=== PATIENT | male | born 2000 | race Caucasian/White ===

== ENCOUNTER 2023-06-10 09:37 | Inpatient (IN) | payer OTHER, SELFPAY ==
[2023-06-10 09:38] VITALS: BP 126/91; PULSE 120; RESP 18; TEMP 36.6; O2SAT 98
--- NOTE | 2023-06-10 10:10 | EX.ED.SAOD ---
HPI History of Present Illness Chief Complaint: Substance Abuse Informant: patient Onset/Context/Timing Onset: Yesterday Context: Gradual Onset Timing: Continuous Quality: Aching Location: Generalized Worsened by: Nothing Relieved by: Nothing Associated Symptoms Associated Symptoms: Positive for vomiting*, diarrhea* and tremor; Negative for fever*, rash*, seizure, palpatations, change in mental status, suicidal ideation or homicidal ideation Narrative Narrative: Patient presents requesting detox from fentanyl, benzodiazepines, and amphetamines. Patient states his last use was yesterday. Patient states he uses approximately half a gram fentanyl per day. Patient admits to some nausea, vomiting, and diarrhea. Patient admits to some mild tremors but denies any seizures. Patient denies any suicidal or homicidal ideations. Patient denies any fevers but admits to some subjective chills. Patient states he has never been through detox before. PFSH PFS Medical History no medical history no medical history Home Medications NK 06/10/23 [History Last Taken Unknown] Allergy/AdvReac Type Severity Reaction Status Date / Time No Known Allergies Allergy Verified 06/10/23 09:41 Surgical History (Updated 06/10/23 @ 10:[address] Ozzy Barrios DO) S/P ORIF (open reduction internal fixation) fracture Social History (Updated 06/10/23 @ 10:[address] Ozzy Barrios DO) Electronic Cigarette Use: with nicotine substance use type: amphetamines and opiates ROS ROS ED Constitutional Constitutional ED: Reports chills and subjective; Denies fever(s) Eyes Eyes: Denies blurry vision or change in vision ENT ENT ED: Denies rhinorrhea or sore throat Cardiovascular Cardiovascular: Denies chest pain or palpitations Respiratory/Chest Respiratory/Chest: Denies cough or dyspnea Gastrointestinal Gastrointestinal: Reports diarrhea, nausea and vomiting Genitourinary Genitourinary ED: Denies dysuria or hematuria Musculoskeletal Musculoskeletal: Reports myalgias Integumentary Denies abscess or rash Neurologic Neurologic: Denies headache(s) or weakness Allergic/Immunologic Allergic/Immunologic ED: Denies mouth swelling or urticaria EXAM Physical Exam Const Vital Signs: 06/10/23 09:38 Temperature 97.8 F Temperature Source Temporal Pulse Rate 120 H Respiratory Rate 18 Blood Pressure 126/91 H Blood Pressure Mean 102 Pulse Ox 98 Oxygen Delivery Method Room Air Positive well nourished and well developed General Appearance ED: well developed and NAD HEENT Reports moist mucous membranes Resp normal respiratory effort and clear to auscultation bilaterally Cardio regular rhythm Rate: tachycardic GI soft to palpation, non-tender and non-distended Neuro oriented x3, CN's II-XII intact bilaterally and no sensory deficits noted Cassandra Coma Scale: document GCS findings Spontaneous Obeys Commands Oriented 15 Sensorium / Orientation: alert Motor Exam: strength 5/5 throughout Psych mental status grossly normal MDM MDM MDM Narrative Medical decision making narrative: Medical screening labs will be obtained. CBC will be obtained to assess for leukocytosis and anemia. Comprehensive metabolic profile will be obtained to assess for hepatic function, renal function, and electrolyte abnormality. Urinalysis will be obtained to assess for urinary tract infection or hematuria. Serum alcohol level will be obtained to assess for alcohol intoxication. Urine tox screen will be obtained to assess for substance abuse. Lab Data Attestation: I reviewed the patient's lab results. Lab results narrative: CBC was reviewed and was within normal limits. Comprehensive metabolic profile was reviewed and was within normal limits. Urinalysis was reviewed. There is no evidence of urinary tract infection or hematuria. Urine tox screen was reviewed and was positive for benzodiazepines and cannabinoids. Serum alcohol level was reviewed and was less than 3.0. Labs: Laboratory Results - last 24 hr 06/10/23 06/10/23 10:11 11:00 WBC 10.4 RBC 5.32 Hgb 15.1 Hct 46.3 MCV 87.0 MCH 28.4 MCHC 32.6 RDW Std Deviation 42.8 RDW Coeff of Lisa 13.6 Plt Count 272 MPV 10.9 Immature Gran % (Auto) 0.300 Neut % (Auto) 76.5 H Lymph % (Auto) 16.9 L [place] % (Auto) 6.1 Eos % (Auto) 0.0 Baso % (Auto) 0.2 Absolute Neuts (auto) 7.9 H Absolute Lymphs (auto) 1.75 Nucleated RBC % 0 Sodium 146 H Potassium 4.0 Chloride 114 H Carbon Dioxide 25.0 Anion Gap 7 BUN 11 Creatinine 0.96 Est GFR (MDRD) Af Amer 127 Est GFR (MDRD) Non-Af 105 BUN/Creatinine Ratio 11.4 Glucose 114 H Calcium 9.3 Total Bilirubin 0.50 AST 19 ALT 22 Alkaline Phosphatase 81 Total Protein 7.6 Albumin 4.1 Globulin 3.5 Albumin/Globulin Ratio 1.2 Urine Color Yellow Urine Clarity Clear Urine pH 8.0 Ur Specific [place] 1.015 Urine Protein 15 H Urine Glucose (UA) Normal Urine Ketones Negative Urine Occult Blood Negative Urine Nitrite Negative Urine Bilirubin Negative Urine Urobilinogen Normal Ur Leukocyte Esterase Negative Urine RBC 0 SEEN Urine WBC 0-5 SEEN Ur Squamous Epith Cells 0 SEEN Urine Bacteria RARE Urine Mucus RARE Urine Opiates Screen NEGATIVE Urine Methadone Screen NEGATIVE Ur Barbiturates Screen NEGATIVE Ur Phencyclidine Scrn NEGATIVE Ur Amphetamines Screen NEGATIVE MDMA (Ecstasy) Screen NEGATIVE U Benzodiazepines Scrn POSITIVE H Urine Cocaine Screen NEGATIVE U Cannabinoids Screen POSITIVE H Ur Drug Screen Comment Ethyl Alcohol < 3.0 Treatment and Re-Evaluation Narrative: Patient was advised of his findings. Case was discussed with the hospitalist. He will admit the patient to his service. Patient understood and was agreeable with the plan. All questions were answered. Discharge Plan Triage Chief Complaint: Substance Abuse ED Provider: Ozzy Barrios Dx/Rx/DC Orders Clinical Impression: Opiate withdrawal, Desire for detoxification, Benzodiazepine withdrawal Prescriptions: No Action NK Primary Care Provider: Care Physician,No Primary Referrals: Care Physician,No Primary [Primary Care Provider] - Disposition Disposition: Acute Care Hospital [facility]
[2023-06-10 10:45] LABS: Absolute Lymphocyte Count 1.75 X10^3/uL (0.83-4.51); Absolute Neutrophil Count 7.9 X10^3/uL (2.0-7.7); Basophil# 0.02 X10^3/uL; Basophil% 0.2 % (0-1); Hematocrit 46.3 % (40-54); Hemoglobin 15.1 g/dL (13.0-16.5); Lymphocyte # 1.75 X10^3/ul (0.83-4.51); Lymphocyte % 16.9 % (19-41); Mean Corp Hgb Conc 32.6 g/dL (32-36); Mean Corpuscular Hgb 28.4 pg (27.0-32.0); Mean Platelet Vol. 10.9 fl (6.2-12.0); Monocyte# 0.63 X10^3/uL; Monocyte% 6.1 % (0-10); NRBC Flagged by Analyzer 0 % (0-5); Neutrophil # 7.93 X10^3/uL (2.7-7.7); Neutrophil % 76.5 % (47-70); Platelet Count 272 K/mm3 (150-450); RBC Distribution Width CV 13.6 % (11.6-14.6); RBC Distribution Width SD 42.8 fl (35.1-43.9); Red Blood Count 5.32 M/mm3 (4.6-6.2); White Blood Count 10.4 K/mm3 (4.4-11.0)
[2023-06-10 10:56] LABS: Alcohol, Blood (Medical)-Serum < 3.0 mg/dL
[2023-06-10 10:58] LABS: ALB/GLOB Ratio 1.2 RATIO (0.9-2.4); AST(SGOT) 19 U/L (15-37); Alanine Aminotransfer ALT/SGPT 22 U/L (16-61); Albumin, Serum 4.1 g/dL (3.2-5.0); Alkaline Phosphatase 81 U/L (45-117); Anion Gap 7 (5-15); BUN 11 mg/dL (7-18); BUN/Creat Ratio 11.4 RATIO (10-20); Calcium,Total 9.3 mg/dL (8.5-10.1); Chloride 114 mmol/L (98-107); Creatinine, Serum 0.96 mg/dL (0.70-1.30); EST Glomerular Filtration Rate 105 mL/min (>60); Est Glom Filt Rate - Afr Amer 127 mL/min (>60); Globulin 3.5 g/dL (2.2-4.2); Glucose 114 mg/dL (74-106); Protein, Total 7.6 g/dL (6.4-8.2); Sodium Level 146 mmol/L (136-145)
[2023-06-10 11:20] LABS: Red Blood Cells-Urine 0 SEEN /hpf (0-5); Squamous Epithelial Cells - UA 0 SEEN /hpf (0-5)
[2023-06-10 11:27] LABS: Color, Urine Yellow (Yellow); Glucose, Dipstick Normal (Normal); Ketone-Dipstick Negative (Negative); Leukocyte Esterase-Dipstick Negative /ul (Negative); Nitrite-Dipstick Negative (Negative); Occult Blood-Urine Negative /ul (Negative); Protein-Dipstick 15 mg/dl (Negative); Specific Gravity, Urine 1.015 (1.002-1.030); Urine Bilirubin Dipstick Negative (Negative); Urine Clarity Clear (Clear); Urine Urobilinogen Normal (Normal)
[2023-06-10 11:42] LABS: Bacteria RARE /hpf (None Seen); Mucous, Urine RARE /hpf (<or=2+); White Blood Cells 0-5 SEEN /hpf (0-5)
--- NOTE | 2023-06-10 11:47 | HP.PCM.HOS_ITS ---
HPI - General General Date of Admission: 06/10/23 Date of Service: 06/10/23 Chief Complaint: Substance abuse HPI Narrative PRINCESS BOWER, is a 23 M who presented to [facility] ED on 06/10/2023 for opiate and benzodiazepine detoxification. Patient seen at bedside in the ED. Patient was in a dark room, lying fairly comfortably in bed, in no acute distress. Patient states that he has been using dope about every day. On further clarification, states he injects IV fentanyl that he thinks is cut with benzodiazepines and amphetamine. He does not use any benzos or amphetamines on their own. Last use was yesterday. He denies any history of significant withdrawal symptoms. Has never come to the hospital for detoxific ation. States his current symptoms are nausea with vomiting prior to admission, diarrhea, tremor. Denies any fevers, rash, palpitations or mood changes. Denies any other pain or discomfort. No other acute concerns at this time. [facility] Medical History no medical history Home Medications NK 06/10/23 [History Last Taken Unknown] Allergy/AdvReac Type Severity Reaction Status Date / Time No Known Allergies Allergy Verified 06/10/23 09:41 Surgical History (Updated 06/10/23 @ 10:[address] Ozzy Barrios, ) S/P ORIF (open reduction internal fixation) fracture Social History (Updated 06/10/23 @ 10:[address] Ozzy Barrios, ) Smoking Status: Current every day smoker tobacco type: e-cigarettes Electronic Cigarette Use: with nicotine substance use type: amphetamines and opiates ROS Constitutional Constitutional: Reports malaise; Denies chills, fatigue, fever(s) or weakness Eyes Eyes: Denies change in vision Cardiovascular Cardiovascular: Denies chest pain, dyspnea on exertion, edema, lightheadedness, palpitations or rapid heart rate Respiratory/Chest Respiratory/Chest: Denies cough, shortness of breath at rest or wheezing Gastrointestinal Gastrointestinal: Reports diarrhea and nausea; Denies abdominal pain, constipation or vomiting Genitourinary Genitourinary: Denies dysuria Musculoskeletal Musculoskeletal: Denies back pain Neurologic Neurologic: Denies dizziness or focal weakness Psychiatric Psychiatric: Reports anxiety Vital Signs Vital Signs Vital Signs: 06/10/23 09:38 Temperature 97.8 F Temperature Source Temporal Pulse Rate 120 H Respiratory Rate 18 Blood Pressure 126/91 H Blood Pressure Mean 102 Pulse Ox 98 Oxygen Delivery Method Room Air Physical Exam Const alert, oriented x3, no apparent distress and average body habitus Constitutional Narrative: Pleasant young male, laying fairly comfortably in bed, conversing normally, no acute distress. General Appearance: cooperative and comfortable HEENT normocephalic, head/scalp atraumatic, hearing grossly normal bilaterally, nasal mucous membranes and turbinates normal and moist oral mucous membranes Eyes PERRL, EOMs intact bilaterally and conjunctivae normal Neck full ROM, no lymphadenopathy and supple Lymph Lymphatic: no lymphadenopathy noted Chest inspection of chest normal Resp normal respiratory effort, normal air movement, no use of accessory muscles and clear to auscultation bilaterally Cardio regular rate, regular rhythm, no murmurs and peripheral pulses 2+ throughout GI normal to inspection, nondistended, normoactive bowel sounds, soft to palpation, non-tender and non-distended Back/Spine normal ROM Extremity normal to inspection, full ROM and no pedal edema Skin no rashes or lesions noted Psych mental status grossly normal Results Lab / Micro Data 06/10/23 10:11 06/10/23 10:11 Labs: Laboratory Results - last 24 hr 06/10/23 10:11: WBC 10.4, RBC 5.32, Hgb 15.1, Hct 46.3, MCV 87.0, MCH 28.4, MCHC 32.6, RDW Std Deviation 42.8, RDW Coeff of Lisa 13.6, Plt Count 272, MPV 10.9, Immature Gran % (Auto) 0.300, Neut % (Auto) 76.5 H, Lymph % (Auto) 16.9 L, [place] % (Auto) 6.1, Eos % (Auto) 0.0, Baso % (Auto) 0.2, Absolute Neuts (auto) 7.9 H, Absolute Lymphs (auto) 1.75, Nucleated RBC % 0, Sodium 146 H, Potassium 4.0, Chloride 114 H, Carbon Dioxide 25.0, Anion Gap 7, BUN 11, Creatinine 0.96, Est GFR (MDRD) Af Amer 127, Est GFR (MDRD) Non-Af 105, BUN/Creatinine Ratio 11.4, Glucose 114 H, Calcium 9.3, Total Bilirubin 0.50, AST 19, ALT 22, Alkaline Phosphatase 81, Total Protein 7.6, Albumin 4.1, Globulin 3.5, Albumin/Globulin Ratio 1.2, Ethyl Alcohol < 3.0 06/10/23 11:00: Urine Color Yellow, Urine Clarity Clear, Urine pH 8.0, Ur Specific [place] 1.015, Urine Protein 15 H, Urine Glucose (UA) Normal, Urine Ketones Negative, Urine Occult Blood Negative, Urine Nitrite Negative, Urine Bilirubin Negative, Urine Urobilinogen Normal, Ur Leukocyte Esterase Negative, Urine RBC 0 SEEN, Urine WBC 0-5 SEEN, Ur Squamous Epith Cells 0 SEEN, Urine Bacteria RARE, Urine Mucus RARE, Ur Drug Screen Comment Assessment & Plan Assessment/Plan (1) Benzodiazepine withdrawal: (2) Opiate withdrawal: (3) Desire for detoxification: PLAN: Plan Patient is a 23-year-old male who presented to [facility] ED on 06/10/2023 for opiate and benzodiazepine detoxification. 1. Polysubstance abuse Patient reports fentanyl, benzodiazepine and amphetamine abuse. On further questioning, states his dope was cut with benzos and amphetamines, was not taking Xanax or other benzos on their own. Injects about half a gram of fentanyl per day. Last use was day prior to admission. Urine drug screen was positive only for benzodiazepines and cannabinoids, but notably fentanyl is not detected with this screen. ? Admit under inpatient status to [facility]. Opiate withdrawal protocol ordered including Subutex taper. Benzodiazepine withdrawal order set also ordered, but only with [place] protocol, no benzo or phenobarbital taper for now. Case management, addiction medicine consulted. DVT prophylaxis: Low risk, ambulate CODE STATUS: Full code, verified Expected disposition: Home, 2 to 3 days Total clinical time spent by myself addressing the patient's medical issues, rev iewing all the data, and collaborating with patient's care team: 40 minutes. Charges/Coding Visit Charges Inpatient E&M: 99493 Init Hosp L1
[2023-06-10 11:55] LABS: Amphetamine Urine VISTA NEGATIVE (<1000 ng/mL); Barbiturate Urine VISTA NEGATIVE (< 200 ng/mL); Benzodiazepine Urine VISTA POSITIVE (< 200 ng/mL); Cocaine Urine VISTA NEGATIVE (< 300 ng/mL); Ecstacy Urine VISTA NEGATIVE (< 500 ng/mL); Methadone Urine VISTA NEGATIVE (< 300 ng/mL); PCP Urine VISTA NEGATIVE (< 25 ng/mL); THC Urine VISTA POSITIVE (< 50 ng/mL); Vista UDS pH Range 8
[2023-06-10 12:05] VITALS: BMI 21.7; BMI 21.8
[2023-06-10 12:11] VITALS: BP 162/90; PULSE 109; RESP 16; TEMP 37.3; O2SAT 97
[2023-06-10 12:14] VITALS: BP 162/90; PULSE 111; RESP 16; TEMP 37.3; O2SAT 97
[2023-06-10 16:46] VITALS: BMI 21.5
[2023-06-10] MEDS: Acetaminophen 325 MG Tablet 650 MG PO (16:56)
[2023-06-10] MEDS: cloNIDine HCl 0.1 MG Tablet PO (16:57)
[2023-06-10] MEDS: Dicyclomine 10 MG Capsule 20 MG PO (16:57)
[2023-06-10] MEDS: hydrOXYzine PAM 25 MG Capsule 50 MG PO (16:57)
[2023-06-10 17:00] VITALS: BP 139/90; PULSE 110; RESP 14; TEMP 36.8; O2SAT 99
[2023-06-10] MEDS: Buprenorphine HCl 2 MG TAB.SUBL SL (17:07)
[2023-06-10 20:49] VITALS: BP 126/71; PULSE 76; RESP 16; TEMP 37.1; O2SAT 96
[2023-06-10] MEDS: traZODone 100 MG Tablet PO (20:55)
[2023-06-11] VITALS (8 sets, daily range): BP systolic 100–119; BP diastolic 50–67; PULSE 65–81; RESP 14–18; TEMP 36.6–37.1; O2SAT 93–100
[2023-06-11] MEDS: Methocarbamol 750 MG Tablet PO ×2 (00:48→22:17)
[2023-06-11] MEDS: Buprenorphine HCl 2 MG TAB.SUBL SL ×3 (00:48→17:21)
[2023-06-11 05:49] LABS: Hematocrit 44.4 % (40-54); Hemoglobin 14.3 g/dL (13.0-16.5); Mean Corp Hgb Conc 32.2 g/dL (32-36); Mean Corpuscular Hgb 28.1 pg (27.0-32.0); Mean Corpuscular Volume 87.2 fL (80-94); Mean Platelet Vol. 10.5 fl (6.2-12.0); Platelet Count 270 K/mm3 (150-450); RBC Distribution Width CV 13.7 % (11.6-14.6); RBC Distribution Width SD 43.6 fl (35.1-43.9); Red Blood Count 5.09 M/mm3 (4.6-6.2); White Blood Count 11.1 K/mm3 (4.4-11.0)
[2023-06-11 06:17] LABS: Anion Gap 6 (5-15); BUN 14 mg/dL (7-18); BUN/Creat Ratio 17.6 RATIO (10-20); Calcium,Total 8.8 mg/dL (8.5-10.1); Chloride 113 mmol/L (98-107); EST Glomerular Filtration Rate 130 mL/min (>60); Est Glom Filt Rate - Afr Amer 158 mL/min (>60); Estimated Creatinine Clearance 140.57 ml/min; Glucose 101 mg/dL (74-106); Potassium 4.1 mmol/L (3.5-5.1); Sodium Level 143 mmol/L (136-145)
[2023-06-11] MEDS: Thiamine Hydrochloride 100 MG Tablet PO (08:35)
[2023-06-11] MEDS: Folic Acid 1 MG Tablet PO (08:36)
[2023-06-11] MEDS: Acetaminophen 325 MG Tablet 650 MG PO ×2 (09:00→18:21)
[2023-06-11] MEDS: cloNIDine HCl 0.1 MG Tablet PO ×2 (09:01→22:17)
[2023-06-11] MEDS: hydrOXYzine PAM 25 MG Capsule 50 MG PO ×2 (09:01→18:22)
--- NOTE | 2023-06-11 12:04 | PCM.PN.HOSP ---
Reason for Visit Reason for Visit: Diagnoses Opioid use, unspecified with withdrawal (06/10/23) Sedative, hypnotic or anxiolytic use, unspecified with withdrawal, unspecified (06/10/23) Subjective Subjective Patient seen at bedside this morning. Sitting comfortably in bed, eating breakfast when I arrived to the room. Patient states that the medications have controlled his withdrawal symptoms well. Denies any acute pain or discomfort. No other acute concerns this morning. Objective Data Objective Data Vital Signs: Vital Signs Temp Pulse Resp BP Pulse Ox O2 Del Method 98 F 68 18 119/67 98 Room Air 06/11/23 09:03 06/11/23 09:05 06/11/23 09:05 06/11/23 09:03 06/11/23 09:05 06/11/23 09:05 Oxygen Delivery Method Room Air Weight: 68.039 kg Body Mass Index (BMI) 21.5 Intake & Output: Intake and Output for Last 24 Hours 06/09/23 06/10/23 06/11/23 23:59 23:59 23:59 Intake Total 740 / 740 Balance 740 / 740 Lab / Micro Data 06/11/23 05:38 06/11/23 05:38 Labs: Laboratory Results - last 24 hr 06/11/23 05:38: WBC 11.1 H, RBC 5.09, Hgb 14.3, Hct 44.4, MCV 87.2, MCH 28.1, MCHC 32.2, RDW Std Deviation 43.6, RDW Coeff of Lisa 13.7, Plt Count 270, MPV 10.5, Sodium 143, Potassium 4.1, Chloride 113 H, Carbon Dioxide 24.0, Anion Gap 6, BUN 14, Creatinine 0.80, Estim Creat Clear Calc 140.57, Est GFR (MDRD) Af Amer 158, Est GFR (MDRD) Non-Af 130, BUN/Creatinine Ratio 17.6, Glucose 101, Calcium 8.8 Physical Exam Const alert, oriented x3, no apparent distress and average body habitus Constitutional Narrative: Pleasant young male, sitting comfortably in bed, conversing normally, no acute distress. General Appearance: cooperative and comfortable HEENT normocephalic, head/scalp atraumatic, hearing grossly normal bilaterally, nasal mucous membranes and turbinates normal and moist oral mucous membranes Eyes PERRL, EOMs intact bilaterally and conjunctivae normal Neck full ROM, no lymphadenopathy and supple Lymph Lymphatic: no lymphadenopathy noted Chest inspection of chest normal Resp normal respiratory effort, normal air movement, no use of accessory muscles and clear to auscultation bilaterally Cardio regular rate, regular rhythm, no murmurs and peripheral pulses 2+ throughout GI normal to inspection, nondistended, normoactive bowel sounds, soft to palpation, non-tender and non-distended Back/Spine normal ROM Extremity normal to inspection, full ROM and no pedal edema Skin no rashes or lesions noted Neuro moves all extremities and no focal motor deficits Speech: speech normal Psych mental status grossly normal Assessment & Plan Assessment/Plan (1) Benzodiazepine withdrawal: (2) Opiate withdrawal: (3) Desire for detoxification: PLAN: Plan Patient is a 23-year-old male who presented to [facility] ED on 06/10/2023 for opiate and benzodiazepine detoxification. 1. Polysubstance abuse Patient reports fentanyl, benzodiazepine and amphetamine abuse. On further questioning, states his dope was cut with benzos and amphetamines, was not taking Xanax or other benzos on their own. Injects about half a gram of fentanyl per day. Last use was day prior to admission. Urine drug screen was positive only for benzodiazepines and cannabinoids, but notably fentanyl is not detected with this screen. ? Continue opiate withdrawal protocol with Subutex taper. Continue benzodiazepine withdrawal order set with only CIWA scores, no benzo or phenobarbital taper. Case management, addiction medicine consulted. DVT prophylaxis: Low risk, ambulate CODE STATUS: Full code, verified Expected disposition: Home, 1 to 2 days Total clinical time spent by myself addressing the patient's medical issues, reviewing all the data, and collaborating with patient's care team: 25 minutes. Charges/Coding Visit Charges Inpatient E&M: 49177 Subs Hosp L1
[2023-06-11] MEDS: Gabapentin 300 MG Capsule PO (22:17)
[2023-06-11] MEDS: traZODone 100 MG Tablet PO (22:17)
[2023-06-11] MEDS: Ondansetron 8 MG Tablet PO (22:17)
[2023-06-11] MEDS: MELATONIN 3 MG TABLET PO (22:18)
[2023-06-12] MEDS: Buprenorphine HCl 2 MG TAB.SUBL SL ×3 (00:52→17:39)
[2023-06-12 03:15] VITALS: BP 106/68; PULSE 72; RESP 14; TEMP 36.9; O2SAT 99
--- NOTE | 2023-06-12 08:29 | PN.HOSP_ITS ---
Reason for Visit Reason for Visit: Diagnoses Opioid use, unspecified with withdrawal (06/10/23) Sedative, hypnotic or anxiolytic use, unspecified with withdrawal, unspecified (06/10/23) Subjective Subjective Feeling well. Objective Data Objective Data Vital Signs: Vital Signs Temp Pulse Resp BP Pulse Ox O2 Del Method 36.9 C 72 14 106/68 99 Room Air 06/12/23 03:15 06/12/23 03:15 06/12/23 03:15 06/12/23 03:15 06/12/23 03:15 06/12/23 03:15 Oxygen Delivery Method Room Air Weight: 68.039 kg Body Mass Index (BMI) 21.5 Intake & Output: Intake and Output for Last 24 Hours 06/10/23 06/11/23 06/12/23 23:59 23:59 23:59 Intake Total 1380 / 1380 Balance 1380 / 1380 Lab / Micro Data 06/11/23 05:38 06/11/23 05:38 Physical Exam Const alert and no apparent distress HEENT head/scalp atraumatic Neuro Sensorium / Orientation: awake and alert Assessment & Plan Assessment/Plan (1) Benzodiazepine withdrawal: (2) Opiate withdrawal: (3) Desire for detoxification: PLAN: Plan Polysubstance abuse * Patient reports fentanyl, benzodiazepine and amphetamine abuse. On further questioning, states his dope was cut with benzos and amphetamines, was not taking Xanax or other benzos on their own. Injects about half a gram of fentanyl per day. Last use was day prior to admission. Urine drug screen was positive only for benzodiazepines and cannabinoids, but notably fentanyl is not detected with this screen. Continue opiate withdrawal protocol with buprenorphine taper. Continue benzodiazepine withdrawal order set with only CIWA scores, no benzo or phenobarbital taper. Case management, addiction medicine consulted. DVT prophylaxis: Low risk, ambulate CODE STATUS: Full code, verified Expected disposition: Home on the . Charges/Coding Visit Charges Inpatient E&M: 91115 Subs Hosp L1
[2023-06-12 08:30] VITALS: O2SAT 98
[2023-06-12 09:24] VITALS: BP 132/75; PULSE 69; RESP 12; TEMP 36.4; O2SAT 100
[2023-06-12 09:25] VITALS: RESP 14
[2023-06-12] MEDS: Folic Acid 1 MG Tablet PO (09:34)
[2023-06-12] MEDS: Thiamine Hydrochloride 100 MG Tablet PO (09:34)
--- NOTE | 2023-06-12 12:14 | ADDICTION ---
This policy writer sales met with PT to conduct ASAM, MSE, AUDIT assessments and to plan for d/c. PT A+Ox4 and participated actively. All assessments completed and placed in PT's chart. PT plans to f/u with [facility] for follow-up treatment services. PT did not indicate a need for transportation post d/c from [facility].
[2023-06-12 15:10] VITALS: BP 112/53; PULSE 73; RESP 16; TEMP 36.9; O2SAT 98
[2023-06-12 19:45] VITALS: BP 142/89; PULSE 83; RESP 16; TEMP 37.4; O2SAT 99
[2023-06-12] MEDS: cloNIDine HCl 0.1 MG Tablet PO (19:47)
[2023-06-12] MEDS: MELATONIN 3 MG TABLET PO (19:47)
[2023-06-12] MEDS: hydrOXYzine PAM 25 MG Capsule 50 MG PO (19:47)
[2023-06-12] MEDS: traZODone 100 MG Tablet PO (22:10)
[2023-06-12] MEDS: Gabapentin 300 MG Capsule PO (22:10)
[2023-06-13 05:00] VITALS: BP 127/58; PULSE 63; RESP 16; TEMP 36.6; O2SAT 99
[2023-06-13] MEDS: Buprenorphine HCl 2 MG TAB.SUBL SL (05:07)
--- NOTE | 2023-06-13 07:17 | DS.PCM_ITS ---
Providers Date of Admission: 06/10/23 Primary Care Physician: Radha Primary Care Phys Reason For Visit: SUBSTANCE ABUSE, DETOXIFICATION Diagnosis Discharge Diagnosis (1) Benzodiazepine withdrawal: Status: Acute Code(s): F13.939 - Sedative, hypnotic or anxiolytic use, unspecified with withdrawal, unspecified (2) Opiate withdrawal: Status: Acute Code(s): F11.93 - Opioid use, unspecified with withdrawal (3) Desire for detoxification: Status: Acute Plan Polysubstance abuse * Patient reports fentanyl, benzodiazepine and amphetamine abuse. On further questioning, states his dope was cut with benzos and amphetamines, was not taking Xanax or other benzos on their own. Injects about half a gram of f entanyl per day. Last use was day prior to admission. Urine drug screen was positive only for benzodiazepines and cannabinoids, but notably fentanyl is not detected with this screen. Continue opiate withdrawal protocol with buprenorphine taper. Continue benzodiazepine withdrawal order set with only CIWA scores, no benzo or phenobarbital taper. Case management, addiction medicine consulted. * Patient to follow up with [facility]. DVT prophylaxis: Low risk, ambulate CODE STATUS: Full code, verified Expected disposition: Home on the . Medications at Discharge Home Medications NK 06/10/23 Hospital Course Operations None Procedures None Physical Exam Narrative Feels well. No events overnight. Const alert, average body habitus and well nourished General Appearance: cooperative Weight / BMI Weight Weight: 68.039 kg Body Mass Index (BMI) 21.5 ABG / Lab / Microbiology Data 06/11/23 05:38 06/11/23 05:38 D/C Instructions Discharge Diet: No restrictions Meaningful Use Info Meaningful Use Diagnoses (Choose all that apply): None applicable Discharge Plan Admission Admit Date/Time: 06/10/23 11:51 Primary Reason for Your Visit: Opiate withdrawal Attending Provider: Ozzy Harris Primary Care Provider: Care Physician,No Primary Consulting Providers: Fernando Boyd Additional Instructions / Restrictions: Follow-up with [facility] for additional counseling. Discharge Orders/Prescriptions Prescriptions: No Action NK Referrals / Follow Up: Care Physician,No Primary [Primary Care Provider] - Disposition Disposition (needs filled in before D/C Order can be placed): Home, Self Care Charges/Coding Visit Charges Inpatient E&M: 90494 Disch Hosp
[2023-06-13] MEDS: Folic Acid 1 MG Tablet PO (09:26)
[2023-06-13] MEDS: Thiamine Hydrochloride 100 MG Tablet PO (09:27)
[2023-06-13 09:30] VITALS: BP 146/68; PULSE 67; RESP 16; TEMP 36.7; O2SAT 100
== END 2023-06-13 11:42 | disposition home or self-care (01) | DRG 897 ==
LOC: ED 11:57 → MS3 15:42
PROVIDERS: Admitting Provider Hospitalist; Emergency Provider Emergency Medicine
DX: F11.13 Opioid abuse with withdrawal (principal); F15.10 Other stimulant abuse, uncomplicated; F13.139 Sedative, hypnotic or anxiolytic abuse with withdrawal, unspecified; F17.290 Nicotine dependence, other tobacco product, uncomplicated
CPT/HCPCS: 36415; 80048; 80053; 80307; 81001; 82077; 85025; 85027; 94668; 99252; 99283; 99406; G0463

== ENCOUNTER 2025-03-19 13:24 | Emergency (ER) | payer OTHER, MEDICAID, SELFPAY ==
[2025-03-19 13:25] VITALS: BP 140/87; PULSE 90; RESP 18; TEMP 36.6; O2SAT 99; BMI 24.5
[2025-03-19 15:31] VITALS: PULSE 85; RESP 18; O2SAT 98
[2025-03-19 16:05] LABS: Hematocrit 45.6 % (40-54); Hemoglobin 14.9 g/dL (13.0-16.5); Immature Granulocytes Count 0.030 X10^3/uL (0.0-0.0); Mean Corp Hgb Conc 32.7 g/dL (32-36); Mean Corpuscular Volume 90.3 fL (80-94); Mean Platelet Vol. 11.2 fl (6.2-12.0); NRBC Flagged by Analyzer 0 % (0-5); Platelet Count 267 K/mm3 (150-450); RBC Distribution Width CV 13.7 % (11.6-14.6); RBC Distribution Width SD 45.2 fl (35.1-43.9); Red Blood Count 5.05 M/mm3 (4.6-6.2); White Blood Count 8.6 K/mm3 (4.4-11.0)
--- NOTE | 2025-03-19 16:08 | EDS_ITS ---
HPI History of Present Illness Chief Complaint: Allergic Reaction Narrative Narrative: Chief complaint and HPI: 24-year-old male with no significant past medical history presents for evaluation of left hand and forearm swelling after a bee sting to the left hand. Patient states around 8 AM he obtained a bee sting to the left hand. States he has had increased swelling in the hand that has extended into the forearm since the sting. No history of bee allergy. Denies any pain in the arm. Denies any fever, chills, nausea, vomiting, wheezing, chest pain, shortness of breath, diarrhea. Unsure if up-to-date on tetanus. Review of systems: See HPI Medications: As listed on the chart Allergies: As listed on the chart PFSH: Per chart Vital signs: As listed on the chart. Reviewed. Physical exam: Gen: A&O x3, NAD Head: Normocephalic, atraumatic Eyes: No sclera icterus, conjunctiva clear ENT: Moist mucous membranes Neck: Trachea midline CV: Regular rate Resp: Nonlabored respirations Musc: Full range of motion of the left upper extremity, patient has swelling of the left hand that extends into the left mid to upper forearm, nontender, mildly erythematous but appears more allergic than cellulitis, compartments soft, good capillary refill, sensation intact, radial pulse +2, no stinger present in the area of the sting Psych: Cooperative PFSH PFSH Home Medications ?Medication ?Instructions ?Recorded ?Last Taken ?Type NK 06/10/23 Unknown History Allergy/AdvReac Type Severity Reaction Status Date / Time bee venom protein (honey Allergy edema Verified 03/19/25 13:27 bee) (bee sting) Surgical History S/P ORIF (open reduction internal fixation) fracture Social History (Updated 06/10/23 @ 10:[address] Ozzy Barrios, DO) Smoking Status: Current every day smoker tobacco type: e-cigarettes Electronic Cigarette Use: with nicotine substance use type: amphetamines and opiates EXAM Physical Exam Const Vital Signs: 03/19/25 13:25 03/19/25 15:31 Temperature 97.8 F Temperature Source Oral Pulse Rate 90 85 Respiratory Rate 18 18 Blood Pressure 140/87 H Blood Pressure Mean 104 Pulse Ox 99 98 Oxygen Delivery Method Room Air Room Air MDM MDM MDM Narrative Medical decision making narrative: 24-year-old male with no significant past medical history presents for evaluation of left hand and forearm swelling after a bee sting to the left hand. Patient states around 8 AM he obtained a bee sting to the left hand. States he has had increased swelling in the hand that has extended into the forearm since the sting. No history of bee allergy. Denies any pain in the arm. Denies anaphylactic symptoms. Unsure if up-to-date on tetanus. On physical exam, patient no acute distress. Nontoxic-appearing. He does have swelling of the left hand accepted to the left mid to upper forearm. The forearm is nontender and compartments are soft. It is mildly erythematous but appears more allergic and cellulitis. Neurovascularly intact. Patient's swelling was outlined with a skin marker. Ice, Benadryl, Solu-Medrol ordered. Tetanus updated. Suspect local bee sting allergic reaction however cannot rule out early cellulitis. Basic labs ordered including blood cultures. CBC unremarkable without leukocytosis. BMP unremarkable. On reevaluation, the swelling has mildly improved. Patient stable to discharge home. Strict return precautions were explained especially if the swelling goes beyond the marker line. Follow-up with primary care physician. Ice, elevation, ibuprofen, Benadryl. Will place him on steroids and Keflex for possible early infection. Patient confirmed understand the plan. Patient stable to discharge home. Will prescribe epinephrine pen in case next reaction is worse. Impression: 1. Left arm swelling from bee sting allergic reaction Lab Data Labs: Laboratory Results - last 24 hr 03/19/25 16:00 WBC 8.6 RBC 5.05 Hgb 14.9 Hct 45.6 MCV 90.3 MCH 29.5 MCHC 32.7 RDW Std Deviation 45.2 H RDW Coeff of Lisa 13.7 Plt Count 267 MPV 11.2 Immature Gran % (Auto) 0.300 Neut % (Auto) 71.6 H Lymph % (Auto) 18.3 L Lee % (Auto) 8.0 Eos % (Auto) 1.6 Baso % (Auto) 0.2 Absolute Neuts (auto) 6.2 Absolute Lymphs (auto) 1.58 Nucleated RBC % 0 Sodium 139 Potassium 3.8 Chloride 104 Carbon Dioxide 24.4 Anion Gap 10 BUN 10 Creatinine 0.79 Estim Creat Clear Calc 151.44 Est GFR (MDRD) Non-Af 129 BUN/Creatinine Ratio 12.7 Glucose 82 Calcium 9.1 Discharge Plan Triage Chief Complaint: Allergic Reaction ED Provider: Tashi Soliz Dx/Rx/DC Orders Prescriptions: No Action NK Primary Care Provider: Mike Rockwell Referrals: Mike Rockwell, MEDICAL AND HEALTH SERVICES MANAGER-[facility] [Primary Care Provider, Family Practice] Print Language: Georgian
[2025-03-19 16:46] LABS: Anion Gap 10 (5-15); BUN 10 mg/dL (4-19); BUN/Creat Ratio 12.7 RATIO (10-20); Calcium,Total 9.1 mg/dL (7.6-11.0); Carbon Dioxide 24.4 mmol/L (21.0-32.0); Chloride 104 mmol/L (98-108); Estimated Creatinine Clearance 151.44 ml/min (50-250); Glucose 82 mg/dL (70-99); Potassium 3.8 mmol/L (3.3-5.1)
[2025-03-19 17:00] VITALS: BP 132/80; PULSE 82; RESP 18; TEMP 36.2; O2SAT 99
== END 2025-03-19 17:03 | disposition home or self-care (01) ==
PROVIDERS: Emergency Provider Surgery; Visit Provider Surgery
DX: T63.441A Toxic effect of venom of bees, accidental (unintentional), initial encounter (principal); M79.89 Other specified soft tissue disorders; F17.290 Nicotine dependence, other tobacco product, uncomplicated
CPT/HCPCS: 80048; 85025; 87040; 87077; 87149; 87186; 90715; 96374; 99282; A4216